=== PATIENT | male | born 2000 | race Asian ===

== ENCOUNTER 2023-10-02 14:11 | Emergency (ER) | payer OTHER ==
[~2023-10-02] VITALS: Ht 175.3 cm; Wt 69.1 kg
[2023-10-02] MEDS ORDERED: MAALOX 30 ML SUSP *UDC PO ONE (18:25)
[2023-10-02 18:55] LABS: BASO # 0.1 10^3/uL (0.0-0.2); BASO % 0.6 % (0.0-1.0); EOS # 0.1 10^3/uL (0.0-0.5); EOS % 1.4 % (0.0-3.0); HEMATOCRIT 46.3 % (42.0-52.0); HEMOGLOBIN 15.3 g/dl (13.5-17.5); LYMPH # 2.4 10^3/uL (1.5-5.0); LYMPH % 29.9 % (24.0-44.0); MEAN CORPUSCULAR HEMOGLOBIN 28.7 pg (27.0-33.0); MEAN CORPUSCULAR VOLUME 86.9 fl (80.0-96.0); MONO # 0.8 10^3/uL (0.0-0.8); MONO % 9.5 % (2.0-8.0); NEUTROPHILS # 4.7 10^3/uL (1.5-8.5); NEUTROPHILS % 58.4 % (36.0-66.0); PLATELET COUNT, AUTOMATED 316 10^3/uL (150-450); RED BLOOD COUNT 5.33 10^6/uL (4.30-6.10); WHITE BLOOD COUNT 8.1 10^3/uL (4.0-10.0)
[2023-10-02 19:14] LABS: BLOOD UREA NITROGEN 10 MG/DL (9-23); CALCIUM LEVEL 9.6 MG/DL (8.5-10.1); CARBON DIOXIDE LEVEL 27 MMOL/L (20-31); CHLORIDE LEVEL 105 MMOL/L (98-107); CK-MB VALUE MASS < 1.0 NG/ML (<3.6); CREATININE FOR GFR 0.82 MG/DL (0.70-1.30); GLOMERULAR FILTRATION RATE > 60.0 (>60); GLUCOSE, FASTING 86 MG/DL (60-100); POTASSIUM SERUM 4.1 MMOL/L (3.5-5.1); SODIUM LEVEL 140 MMOL/L (136-145)
[2023-10-02 19:15] LABS: CPK CREATINE PHOSPHOKINASE 61 U/L (46-171); MB/CK RELATIVE INDEX 1.63 (< OR =4)
[2023-10-02 19:26] VITALS: BP 146/80; TEMP 99; O2SAT 100
[2023-10-02] MEDS ORDERED: MAGNESIUM CITRATE 300ML BTL PO ONE (19:30)
[2023-10-02] MEDS ORDERED: PEPC1TAB5 PO (19:32)
[2023-10-02] MEDS ORDERED: MIRA3350 PO (19:32)
== END 2023-10-02 20:07 | disposition home or self-care (01) ==
LOC: M ED 14:11
DX: K21.9 Gastro-esophageal reflux disease without esophagitis (principal); K59.00 Constipation, unspecified; I45.81 Long QT syndrome; Z79.1 Long term (current) use of non-steroidal anti-inflammatories (NSAID); Z79.818 Long term (current) use of other agents affecting estrogen receptors and estrogen levels

== ENCOUNTER 2023-10-31 15:27 | Emergency (ER) | payer OTHER ==
[~2023-10-31] VITALS: Ht 175.3 cm; Wt 64.8 kg
[~2023-10-31 15:27] MED LIST: MIRA3350 PO; PEPC1TAB5 PO
[2023-10-31] MEDS ORDERED: OMEP-173 (16:01)
[2023-10-31] MEDS ORDERED: LOPE1CAP5 (16:01)
[2023-10-31 21:11] LABS: BASO % 0.5 % (0.0-1.0); EOS # 0.2 10^3/uL (0.0-0.5); EOS % 1.8 % (0.0-3.0); HEMATOCRIT 44.1 % (42.0-52.0); HEMOGLOBIN 15.1 g/dl (13.5-17.5); LYMPH # 3.3 10^3/uL (1.5-5.0); LYMPH % 40.4 % (24.0-44.0); MEAN CORPUSCULAR HEMOGLOBIN 28.8 pg (27.0-33.0); MEAN CORPUSCULAR HGB CONC 34.2 g/dl (32.0-36.5); MONO # 0.8 10^3/uL (0.0-0.8); MONO % 9.4 % (2.0-8.0); NEUTROPHILS # 3.9 10^3/uL (1.5-8.5); NEUTROPHILS % 47.8 % (36.0-66.0); PLATELET COUNT, AUTOMATED 261 10^3/uL (150-450); RED BLOOD COUNT 5.25 10^6/uL (4.30-6.10); WHITE BLOOD COUNT 8.2 10^3/uL (4.0-10.0)
[2023-10-31 21:37] LABS: ETHYL ALCOHOL (ETHANOL) 0.006 % (0.000-0.010)
[2023-10-31 21:39] LABS: RSV AMPLIFICATION NEGATIVE (NEGATIVE)
[2023-10-31 21:41] LABS: BLOOD UREA NITROGEN 11 MG/DL (9-23); CALCIUM LEVEL 9.5 MG/DL (8.5-10.1); CARBON DIOXIDE LEVEL 26 MMOL/L (20-31); CHLORIDE LEVEL 108 MMOL/L (98-107); CREATININE FOR GFR 0.83 MG/DL (0.70-1.30); GLOMERULAR FILTRATION RATE > 60.0 (>60); GLUCOSE, FASTING 85 MG/DL (60-100); MAGNESIUM LEVEL 1.9 MG/DL (1.8-2.4); POTASSIUM SERUM 3.9 MMOL/L (3.5-5.1); SODIUM LEVEL 140 MMOL/L (136-145); THYROID STIMULATING HORMONE 4.192 uIU/ML (0.55-4.78)
[2023-10-31] MEDS ORDERED: NS 1,000 ML IV ONE (22:10)
[2023-10-31 23:47] LABS: AMPHETAMINES LEVEL URINE NEGATIVE (NEGATIVE); BARBITURATES URINE NEGATIVE (NEGATIVE); BENZODIAZEPINES URINE NEGATIVE (NEGATIVE); CANNABINOIDS URINE NEGATIVE (NEGATIVE); PHENCYCLIDINE URINE NEGATIVE (NEGATIVE)
[2023-10-31 23:48] LABS: COCAINE METABOLITE URINE NEGATIVE (NEGATIVE); METHADONE URINE NEGATIVE (NEGATIVE); OPIATES URINE NEGATIVE (NEGATIVE)
[2023-11-01] VITALS: BP 120/74; TEMP 97.8; O2SAT 100
== END 2023-11-01 00:15 | disposition home or self-care (01) ==
LOC: M ED 15:27
DX: R55 Syncope and collapse (principal); F41.9 Anxiety disorder, unspecified; R00.0 Tachycardia, unspecified; I45.10 Unspecified right bundle-branch block; Z79.1 Long term (current) use of non-steroidal anti-inflammatories (NSAID); Z79.83 Long term (current) use of bisphosphonates; Z79.899 Other long term (current) drug therapy

== ENCOUNTER 2023-12-02 15:41 | Inpatient (IN) | payer OTHER ==
[~2023-12-02] VITALS: Ht 177.8 cm; Wt 58.9 kg
[~2023-12-02 15:41] MED LIST changes: +LOPE1CAP5 PO; +OMEP-173 PO
[2023-12-02 17:19] LABS: HEMOGLOBIN 14.6 g/dl (13.5-17.5); MEAN CORPUSCULAR HEMOGLOBIN 28.8 pg (27.0-33.0); MEAN CORPUSCULAR HGB CONC 35.6 g/dl (32.0-36.5); MEAN CORPUSCULAR VOLUME 80.9 fl (80.0-96.0); PLATELET COUNT, AUTOMATED 289 10^3/uL (150-450); RED BLOOD COUNT 5.07 10^6/uL (4.30-6.10); WHITE BLOOD COUNT 7.7 10^3/uL (4.0-10.0)
[2023-12-02 17:35] LABS: AMPHETAMINES LEVEL URINE NEGATIVE (NEGATIVE); BARBITURATES URINE NEGATIVE (NEGATIVE); CANNABINOIDS URINE NEGATIVE (NEGATIVE); COCAINE METABOLITE URINE NEGATIVE (NEGATIVE); METHADONE URINE NEGATIVE (NEGATIVE); OPIATES URINE NEGATIVE (NEGATIVE); PHENCYCLIDINE URINE NEGATIVE (NEGATIVE)
[2023-12-02 17:36] LABS: BENZODIAZEPINES URINE NEGATIVE (NEGATIVE)
[2023-12-02 17:37] LABS: ETHYL ALCOHOL (ETHANOL) < 0.003 % (0.000-0.010)
[2023-12-02 17:38] LABS: SALICYLATE LEVEL < 3.0 MG/DL (<30)
[2023-12-02 17:39] LABS: ALBUMIN 4.5 G/DL (3.2-5.2); ALKALINE PHOSPHATASE 84 U/L (46-116); ALT/SGPT 11 U/L (7.0-40); AST/SGOT 11 U/L (<34); BILIRUBIN,DIRECT 0.5 MG/DL (<0.4); BILIRUBIN,TOTAL 1.4 MG/DL (0.3-1.2); BLOOD UREA NITROGEN 11 MG/DL (9-23); CALCIUM LEVEL 9.8 MG/DL (8.5-10.1); CARBON DIOXIDE LEVEL 21 MMOL/L (20-31); CHLORIDE LEVEL 108 MMOL/L (98-107); CPK CREATINE PHOSPHOKINASE 98 U/L (46-171); CREATININE FOR GFR 0.87 MG/DL (0.70-1.30); GLOMERULAR FILTRATION RATE > 60.0 (>60); GLUCOSE, FASTING 78 MG/DL (60-100); POTASSIUM SERUM 3.4 MMOL/L (3.5-5.1); SODIUM LEVEL 139 MMOL/L (136-145); TOTAL PROTEIN 7.2 G/DL (5.7-8.2)
[2023-12-02 17:41] LABS: THYROID STIMULATING HORMONE 3.619 uIU/ML (0.55-4.78)
[2023-12-02] MEDS ORDERED: POLY17PO18 FT (19:06)
[2023-12-02] MEDS ORDERED: POLY510P14 PO (19:08)
[2023-12-02] MEDS: CYCLOBENZAPRINE 5MG TABLET PO ONE (19:09)
[2023-12-02] MEDS: POTASSIUM CHLORIDE 10MEQ SR TABLET PO ONE (19:09)
[2023-12-02] MEDS ORDERED: HYDR-3363 PO (19:22)
[2023-12-02] MEDS ORDERED: SUMA25TA3 PO (19:22)
[2023-12-02] MEDS ORDERED: LIDO1PAD TOP (19:22)
[2023-12-02] MEDS ORDERED: HOME MED LIST COMPLETE! XX SCH (19:25)
[2023-12-02] MEDS ORDERED: diphenhydrAMINE 25MG CAP PO PRN (22:25)
[2023-12-02] MEDS ORDERED: traZODone 50 MG TAB PO PRN (22:25)
[2023-12-02] MEDS ORDERED: MAALOX 30 ML SUSP *UDC PO PRN (22:25)
[2023-12-03 00:28] VITALS: BP 130/74; TEMP 97.6; O2SAT 100
[2023-12-03 06:32] VITALS: BP 117/63; TEMP 98.3; O2SAT 100
[2023-12-03] MEDS: ACETAMINOPHEN TAB 650MG DOSE (2X325MG) PO PRN (08:45)
[2023-12-03] MEDS: PERCOCET 5MG/325MG TAB PO PRN (12:57)
[2023-12-03 13:12] LABS: IRON (FE) 72 UG/DL (65-175); PERCENT SATURATION 20.7 % (19.7-50.0); RHEUMATOID FACTOR QUANT < 3.5 IU/ML (<14); TOTAL IRON BINDING CAPACITY 347 UG/DL (250-425)
[2023-12-03 13:16] LABS: BLOOD UREA NITROGEN 13 MG/DL (9-23); CALCIUM LEVEL 9.6 MG/DL (8.5-10.1); CARBON DIOXIDE LEVEL 23 MMOL/L (20-31); CHLORIDE LEVEL 107 MMOL/L (98-107); CREATININE FOR GFR 0.85 MG/DL (0.70-1.30); GLOMERULAR FILTRATION RATE > 60.0 (>60); GLUCOSE, FASTING 85 MG/DL (60-100); POTASSIUM SERUM 4.1 MMOL/L (3.5-5.1); SODIUM LEVEL 137 MMOL/L (136-145); TOTAL 25(OH) VITAMIN D 22.8 NG/ML (20.0-100.0)
[2023-12-03] MEDS: OMEPRAZOLE 20MG CAP PO SCH (14:29)
[2023-12-03] MEDS: SERTRALINE HCL 50 MG TAB PO SCH (14:36)
[2023-12-03 16:19] VITALS: BP 117/73; TEMP 97.5; O2SAT 98
[2023-12-03 18:00] VITALS: BP 127/83; TEMP 98.3; O2SAT 100
[2023-12-03] MEDS: IBUPROFEN 400MG TAB PO PRN (18:01)
[2023-12-03] MEDS ORDERED: diphenhydrAMINE 50MG/ML VIAL IM STA (18:09)
[2023-12-03] MEDS ORDERED: PROCHLORPERAZINE 5MG TAB PO PRN (18:10)
[2023-12-03] MEDS: FIORICET TAB PO PRN (18:27)
[2023-12-04 06:51] VITALS: BP 126/77; TEMP 97.4; O2SAT 100
[2023-12-04 09:00] VITALS: BP 131/82; O2SAT 100
[2023-12-04] MEDS: MOM 30ML SUSPENSION UDC PO PRN (15:01)
[2023-12-04 16:08] VITALS: BP 117/79; TEMP 98.6; O2SAT 99
[2023-12-04] MEDS: MIRALAX *UNIT DOSE* 17GM PACKET PO PRN (18:13)
[2023-12-05 06:51] VITALS: BP 95/55; TEMP 98.3; O2SAT 100
[2023-12-05] MEDS: SENNA 8.6 MG TAB (SENOKOT) PO PRN (10:44)
[2023-12-05] MEDS ORDERED: SERT50TA29 PO (13:03)
[2023-12-05 18:43] VITALS: BP 131/84; TEMP 98.2; O2SAT 98
[2023-12-05] MEDS: SUMAtriptan SUCCINATE 25 MG TAB PO PRN (21:28)
[2023-12-06 06:26] VITALS: BP 109/67; TEMP 99.1; O2SAT 96
== END 2023-12-06 11:51 | disposition home or self-care (01) | DRG 885 ==
LOC: M ED 15:41 → M ED INP 22:21 → M PSY 23:34
PROVIDERS: ADMIT Psychiatry & Neurology Psychiatry; ATTEND Student in an Organized Health Care Education/Training Program
DX: F32.2 Major depressive disorder, single episode, severe without psychotic features (principal); R45.851 Suicidal ideations; Z68.1 Body mass index [BMI] 19.9 or less, adult; E46 Unspecified protein-calorie malnutrition; Z79.899 Other long term (current) drug therapy; K21.9 Gastro-esophageal reflux disease without esophagitis; G43.909 Migraine, unspecified, not intractable, without status migrainosus; R52 Pain, unspecified; E87.6 Hypokalemia; E80.6 Other disorders of bilirubin metabolism

== ENCOUNTER → 2023-12-22 | Outpatient (CLI) | payer OTHER ==
[~2023-12-22] MED LIST changes: +HYDR-3363 PO; +ISOVUE-370 76% 100ML VIAL ONE; +LIDO1PAD TOP; +POLY17PO18 FT; +POLY510P14 PO; +SERT50TA29 PO; +SUMA25TA3 PO
== END ==
LOC: M PLAIMG 10:46
PROVIDERS: ATTEND Physician Assistant
DX: G89.29 Other chronic pain (principal)
CPT/HCPCS: 71260; Q9967

== ENCOUNTER 2023-12-29 11:26 | Inpatient (IN) | payer OTHER ==
[~2023-12-29] VITALS: Ht 175.3 cm; Wt 57.4 kg
[~2023-12-29 11:26] MED LIST changes: -ISOVUE-370 76% 100ML VIAL ONE
[2023-12-29 12:00] LABS: BASO % 0.5 % (0.0-1.0); EOS # 0.1 10^3/uL (0.0-0.5); EOS % 1.1 % (0.0-3.0); HEMATOCRIT 46.6 % (42.0-52.0); HEMOGLOBIN 16.1 g/dl (13.5-17.5); LYMPH # 1.8 10^3/uL (1.5-5.0); LYMPH % 32.2 % (24.0-44.0); MEAN CORPUSCULAR HEMOGLOBIN 28.8 pg (27.0-33.0); MEAN CORPUSCULAR HGB CONC 34.5 g/dl (32.0-36.5); MEAN CORPUSCULAR VOLUME 83.4 fl (80.0-96.0); MONO # 0.6 10^3/uL (0.0-0.8); NEUTROPHILS # 3.2 10^3/uL (1.5-8.5); PLATELET COUNT, AUTOMATED 291 10^3/uL (150-450); RED BLOOD COUNT 5.59 10^6/uL (4.30-6.10); WHITE BLOOD COUNT 5.6 10^3/uL (4.0-10.0)
[2023-12-29 12:32] LABS: ETHYL ALCOHOL (ETHANOL) < 0.003 % (0.000-0.010)
[2023-12-29 12:34] LABS: ALBUMIN 5.3 G/DL (3.2-5.2); ALKALINE PHOSPHATASE 102 U/L (46-116); ALT/SGPT 15 U/L (7.0-40); AST/SGOT 12 U/L (<34); BILIRUBIN,DIRECT 0.6 MG/DL (<0.4); BILIRUBIN,TOTAL 1.6 MG/DL (0.3-1.2); BLOOD UREA NITROGEN 17 MG/DL (9-23); CALCIUM LEVEL 10.4 MG/DL (8.5-10.1); CARBON DIOXIDE LEVEL 22 MMOL/L (20-31); CHLORIDE LEVEL 105 MMOL/L (98-107); CREATININE FOR GFR 0.88 MG/DL (0.70-1.30); GLOMERULAR FILTRATION RATE > 60.0 (>60); GLUCOSE, FASTING 92 MG/DL (60-100); POTASSIUM SERUM 3.5 MMOL/L (3.5-5.1); SALICYLATE LEVEL < 3.0 MG/DL (<30); SODIUM LEVEL 140 MMOL/L (136-145); TOTAL PROTEIN 8.3 G/DL (5.7-8.2)
[2023-12-29 12:36] LABS: THYROID STIMULATING HORMONE 1.733 uIU/ML (0.55-4.78)
[2023-12-29 12:39] LABS: CPK CREATINE PHOSPHOKINASE 97 U/L (46-171)
[2023-12-29] MEDS ORDERED: CALCTAB93 (13:49)
[2023-12-29] MEDS ORDERED: SERT50TA29 PO (14:06)
[2023-12-29] MEDS ORDERED: HOME MED LIST COMPLETE! XX SCH (14:10)
[2023-12-29 14:13] LABS: AMPHETAMINES LEVEL URINE NEGATIVE (NEGATIVE); BARBITURATES URINE NEGATIVE (NEGATIVE); BENZODIAZEPINES URINE NEGATIVE (NEGATIVE); CANNABINOIDS URINE NEGATIVE (NEGATIVE); COCAINE METABOLITE URINE NEGATIVE (NEGATIVE); METHADONE URINE NEGATIVE (NEGATIVE); OPIATES URINE NEGATIVE (NEGATIVE); PHENCYCLIDINE URINE NEGATIVE (NEGATIVE)
[2023-12-29] MEDS ORDERED: LIDOCAINE 5% (LIDODERM) PATCH TOP PRN (18:25)
[2023-12-29] MEDS ORDERED: NICOTINE 21MG/24HR 1 EA TRANSDERMAL TD PRN (18:25)
[2023-12-29] MEDS ORDERED: diphenhydrAMINE 25MG CAP PO PRN (18:25)
[2023-12-29] MEDS ORDERED: MAALOX 30 ML SUSP *UDC PO PRN (18:25)
[2023-12-29 21:39] VITALS: BP 107/59; TEMP 98.4; O2SAT 97
[2023-12-30] MEDS: traZODone 50 MG TAB PO PRN (01:17)
[2023-12-30 06:02] VITALS: BP 108/63; TEMP 97.7; O2SAT 99
[2023-12-30] MEDS: OMEPRAZOLE 20MG CAP PO SCH (09:12)
[2023-12-30] MEDS: SERTRALINE HCL 50 MG TAB PO SCH (09:12)
[2023-12-30] MEDS: IBUPROFEN 400MG TAB PO PRN (09:24)
[2023-12-30] MEDS: SUMAtriptan SUCCINATE 25 MG TAB PO PRN (10:21)
[2023-12-30] MEDS: tiZANidine 4 MG TAB PO ONE (10:33)
[2023-12-30] MEDS: CAPSAICIN 0.025% CR 60 GM TOP PRN (12:02)
[2023-12-30 16:27] VITALS: BP 124/63; TEMP 97.9; O2SAT 100
[2023-12-30] MEDS: DULoxetine 30MG CAPSULE (CYMBALTA) PO SCH (20:55)
[2023-12-30] MEDS: ACETAMINOPHEN TAB 650MG DOSE (2X325MG) PO PRN (21:01)
[2023-12-31 06:33] VITALS: BP 111/56; TEMP 97.2; O2SAT 100
[2023-12-31] MEDS: tiZANidine 4 MG TAB PO PRN (15:10)
[2023-12-31 16:01] VITALS: BP 137/79; TEMP 97.5; O2SAT 96
[2024-01-01 06:27] VITALS: BP 101/68; TEMP 97.4; O2SAT 99
[2024-01-01] MEDS: MIRALAX *UNIT DOSE* 17GM PACKET PO SCH (12:42)
[2024-01-01] MEDS: MOM 30ML SUSPENSION UDC PO PRN (14:19)
[2024-01-01 16:19] VITALS: BP 106/65; TEMP 98.1; O2SAT 100
[2024-01-01] MEDS: PILL CUTTER 1 EACH XX PRN (17:40)
[2024-01-02 05:54] VITALS: TEMP 97.6; O2SAT 100
[2024-01-02 12:50] VITALS: BP 130/72; TEMP 97.6; O2SAT 100
[2024-01-02 14:15] VITALS: BP_SYST 129; BP_SYST 137; BP_DIAS 78; BP_DIAS 86
[2024-01-02 18:10] VITALS: BP 127/70; TEMP 97.8
[2024-01-02] MEDS: traZODone 25MG PER 1/2 TABLET PO PRN (21:50)
[2024-01-03 01:15] VITALS: BP 116/71; TEMP 98; O2SAT 100
[2024-01-03 06:08] VITALS: BP 104/57; TEMP 98.3; O2SAT 99
[2024-01-03] MEDS ORDERED: CYMB1CAP5 PO (08:50)
[2024-01-03] MEDS ORDERED: CAPS25CR TOP (08:50)
[2024-01-03] MEDS ORDERED: MIRA33506 PO (08:50)
[2024-01-03] MEDS ORDERED: TRAZ-252 PO (08:50)
[2024-01-03] MEDS ORDERED: NICO21PAT TD (08:50)
[2024-01-03] MEDS ORDERED: QC F0.52 PO (08:51)
== END 2024-01-03 12:00 | disposition home or self-care (01) | DRG 885 ==
LOC: M ED 11:26 → M ED INP 18:25 → M PSY 20:51
PROVIDERS: ADMIT Student in an Organized Health Care Education/Training Program; ATTEND Student in an Organized Health Care Education/Training Program
DX: F33.1 Major depressive disorder, recurrent, moderate (principal); F45.0 Somatization disorder; R52 Pain, unspecified; K21.9 Gastro-esophageal reflux disease without esophagitis; G43.909 Migraine, unspecified, not intractable, without status migrainosus; Z79.899 Other long term (current) drug therapy

== ENCOUNTER 2024-01-10 12:52 | Inpatient (IN) | payer OTHER ==
[~2024-01-10] VITALS: Ht 175.3 cm; Wt 58.7 kg
[~2024-01-10 12:52] MED LIST changes: +CALCTAB93; +CAPS25CR TOP; +CYMB1CAP5 PO; +MIRA33506 PO; +NICO21PAT TD; +QC F0.52 PO; +TRAZ-252 PO
[2024-01-10] MEDS ORDERED: IBUP-1022 PO (13:10)
[2024-01-10] MEDS ORDERED: IBUP-1114 PO (13:10)
[2024-01-10] MEDS ORDERED: MIRA3350 PO (13:10)
[2024-01-10 13:57] LABS: HEMATOCRIT 42.1 % (42.0-52.0); HEMOGLOBIN 14.3 g/dl (13.5-17.5); MEAN CORPUSCULAR HEMOGLOBIN 28.8 pg (27.0-33.0); MEAN CORPUSCULAR VOLUME 84.7 fl (80.0-96.0); PLATELET COUNT, AUTOMATED 300 10^3/uL (150-450); RED BLOOD COUNT 4.97 10^6/uL (4.30-6.10); WHITE BLOOD COUNT 7.8 10^3/uL (4.0-10.0)
[2024-01-10 14:19] LABS: ETHYL ALCOHOL (ETHANOL) < 0.003 % (0.000-0.010)
[2024-01-10 14:20] LABS: ALBUMIN 4.9 G/DL (3.2-5.2); ALKALINE PHOSPHATASE 90 U/L (46-116); ALT/SGPT 18 U/L (7.0-40); AST/SGOT 14 U/L (<34); BILIRUBIN,DIRECT 0.5 MG/DL (<0.4); BILIRUBIN,TOTAL 1.2 MG/DL (0.3-1.2); BLOOD UREA NITROGEN 16 MG/DL (9-23); CALCIUM LEVEL 10.3 MG/DL (8.5-10.1); CARBON DIOXIDE LEVEL 24 MMOL/L (20-31); CHLORIDE LEVEL 103 MMOL/L (98-107); CREATININE FOR GFR 0.88 MG/DL (0.70-1.30); GLOMERULAR FILTRATION RATE > 60.0 (>60); GLUCOSE, FASTING 83 MG/DL (60-100); POTASSIUM SERUM 3.6 MMOL/L (3.5-5.1); SALICYLATE LEVEL < 3.0 MG/DL (<30); SODIUM LEVEL 140 MMOL/L (136-145); TOTAL PROTEIN 7.4 G/DL (5.7-8.2)
[2024-01-10 14:23] LABS: THYROID STIMULATING HORMONE 0.575 uIU/ML (0.55-4.78)
[2024-01-10 15:46] LABS: AMPHETAMINES LEVEL URINE NEGATIVE (NEGATIVE); BARBITURATES URINE NEGATIVE (NEGATIVE); BENZODIAZEPINES URINE NEGATIVE (NEGATIVE); COCAINE METABOLITE URINE NEGATIVE (NEGATIVE); METHADONE URINE NEGATIVE (NEGATIVE); OPIATES URINE NEGATIVE (NEGATIVE)
[2024-01-10 15:47] LABS: CANNABINOIDS URINE NEGATIVE (NEGATIVE); PHENCYCLIDINE URINE NEGATIVE (NEGATIVE)
[2024-01-10] MEDS ORDERED: DULO1CAP5 PO (20:04)
[2024-01-10] MEDS ORDERED: HYDR50TA70 PO (20:04)
[2024-01-10] MEDS ORDERED: RIZA5TAB52 PO (20:04)
[2024-01-10] MEDS ORDERED: POLY17PO18 PO (20:04)
[2024-01-10] MEDS ORDERED: QC F0.52 PO (20:04)
[2024-01-10] MEDS ORDERED: NICO21DI37 TD (20:04)
[2024-01-10] MEDS ORDERED: CAPS0.022 TOP (20:04)
[2024-01-10] MEDS ORDERED: TRAZ-252 PO (20:05)
[2024-01-10] MEDS ORDERED: HOME MED LIST COMPLETE! XX SCH (20:15)
[2024-01-11] MEDS: IBUPROFEN 400MG TAB PO PRN ×2 (10:00→18:52)
[2024-01-11] MEDS: OMEPRAZOLE 20MG CAP PO SCH (10:00)
[2024-01-11] MEDS: MIRALAX *UNIT DOSE* 17GM PACKET PO PRN (12:28)
[2024-01-11] MEDS ORDERED: diphenhydrAMINE 25MG CAP PO PRN (17:20)
[2024-01-11] MEDS ORDERED: MAALOX 30 ML SUSP *UDC PO PRN (17:20)
[2024-01-11] MEDS: RIZATRIPTAN BENZOATE 10 MG TAB PO PRN (19:13)
[2024-01-11] MEDS: traZODone 50 MG TAB PO PRN (20:42)
[2024-01-11 21:45] VITALS: BP 118/79
[2024-01-12 06:39] VITALS: BP 104/57; TEMP 97.5; O2SAT 100
[2024-01-12] MEDS ORDERED: MIRALAX *UNIT DOSE* 17GM PACKET PO SCH (09:00)
[2024-01-12] MEDS: hydrOXYzine 50 MG TAB PO PRN (12:49)
[2024-01-12] MEDS: ACETAMINOPHEN TAB 650MG DOSE (2X325MG) PO PRN (12:49)
[2024-01-12] MEDS: MOM 30ML SUSPENSION UDC PO PRN (12:51)
[2024-01-12 15:59] VITALS: BP 96/50; TEMP 98.2; O2SAT 98
[2024-01-12] MEDS: MIRTAZAPINE 7.5MG PER 1/2 TABLET PO SCH (21:44)
[2024-01-12] MEDS: OLANZapine 2.5MG TABLET PO SCH (21:44)
[2024-01-13 05:41] VITALS: BP 104/70; TEMP 97.6; O2SAT 99
[2024-01-13 08:32] LABS: CHOLESTEROL RISK RATIO 3.22 (<5); HDL CHOLESTEROL 33.5 MG/DL (>40); LDL CHOLESTEROL 58.9 MG/DL (<100); NON-HDL-C 74.5 MG/DL
[2024-01-13] MEDS ORDERED: LIDOCAINE 5% (LIDODERM) PATCH TOP PRN (09:15)
[2024-01-13] MEDS ORDERED: NICOTINE 21MG/24HR 1 EA TRANSDERMAL TD PRN (09:15)
[2024-01-13] MEDS ORDERED: METAMUCIL (PSYLLIUM) PACKET PO PRN (09:15)
[2024-01-13] MEDS: DULoxetine 30MG CAPSULE (CYMBALTA) PO SCH (21:51)
[2024-01-14 06:41] VITALS: BP 102/55; TEMP 97.2; O2SAT 100
[2024-01-14 16:15] VITALS: BP 106/58; TEMP 97.8; O2SAT 100
[2024-01-15] MEDS: DULoxetine 30MG CAPSULE (CYMBALTA) PO SCH (09:15)
[2024-01-15] MEDS: OLANZapine ORAL DISINTEGRATING TAB 5MG PO STA (09:50)
[2024-01-15] MEDS: HALOPERIDOL 5MG/ML 1ML VIAL IM STA (10:15)
[2024-01-15] MEDS: diphenhydrAMINE 50MG/ML VIAL IM STA (10:16)
[2024-01-15] MEDS: LORazepam 2 MG/ML 1ML VIAL IM STA (10:16)
[2024-01-15 10:45] VITALS: BP 103/56; TEMP 98.6; O2SAT 92
[2024-01-15 16:20] VITALS: BP 114/62; TEMP 97.6; O2SAT 99
[2024-01-16 06:20] VITALS: BP 110/61; TEMP 97.7; O2SAT 100
[2024-01-16] MEDS: DULoxetine 30MG CAPSULE (CYMBALTA) PO SCH (09:39)
[2024-01-16 17:26] VITALS: BP 130/82; TEMP 97.7; O2SAT 100
[2024-01-17 06:15] VITALS: BP 119/71; TEMP 98; O2SAT 98
[2024-01-17] MEDS: CAPSAICIN 0.025% CR 60 GM TOP PRN (13:00)
[2024-01-17 17:31] VITALS: BP 115/61; TEMP 98.2; O2SAT 100
[2024-01-17] MEDS: OLANZapine 5 MG TAB PO SCH (21:43)
[2024-01-18 06:16] VITALS: BP 117/57; TEMP 98; O2SAT 100
[2024-01-18] MEDS ORDERED: OLAN1TAB16 PO (09:13)
[2024-01-18] MEDS ORDERED: MIRT1TAB15 PO (09:13)
[2024-01-18] MEDS ORDERED: CYMB1CAP5 PO (09:13)
== END 2024-01-18 12:06 | disposition home or self-care (01) | DRG 885 ==
LOC: M ED 13:44 → M ED INP 01-11 17:20 → M PSY 01-11 21:38
PROVIDERS: ADMIT Psychiatry & Neurology Psychiatry; ATTEND Student in an Organized Health Care Education/Training Program
DX: F32.3 Major depressive disorder, single episode, severe with psychotic features (principal); R45.851 Suicidal ideations; E46 Unspecified protein-calorie malnutrition; F45.1 Undifferentiated somatoform disorder; R45.850 Homicidal ideations; Z79.899 Other long term (current) drug therapy; K21.9 Gastro-esophageal reflux disease without esophagitis; G43.909 Migraine, unspecified, not intractable, without status migrainosus; M79.18 Myalgia, other site; M54.59 Other low back pain

== ENCOUNTER 2024-01-31 12:24 | Emergency (ER) | payer OTHER ==
[~2024-01-31] VITALS: Ht 175.3 cm; Wt 64.5 kg
[~2024-01-31 12:24] MED LIST changes: +CAPS0.022 TOP; +DULO1CAP5 PO; +HYDR50TA70 PO; +IBUP-1022 PO; +IBUP-1114 PO; +MIRT1TAB15 PO; +NICO21DI37 TD; +OLAN1TAB16 PO; +POLY17PO18 PO; +RIZA5TAB52 PO
[2024-01-31 13:36] LABS: BASO % 0.4 % (0.0-1.0); EOS % 0.3 % (0.0-3.0); HEMATOCRIT 46.1 % (42.0-52.0); HEMOGLOBIN 15.5 g/dl (13.5-17.5); LYMPH # 1.7 10^3/uL (1.5-5.0); LYMPH % 15.6 % (24.0-44.0); MEAN CORPUSCULAR HEMOGLOBIN 29.1 pg (27.0-33.0); MEAN CORPUSCULAR HGB CONC 33.6 g/dl (32.0-36.5); MEAN CORPUSCULAR VOLUME 86.7 fl (80.0-96.0); MONO # 0.7 10^3/uL (0.0-0.8); MONO % 6.8 % (2.0-8.0); NEUTROPHILS # 8.3 10^3/uL (1.5-8.5); NEUTROPHILS % 76.4 % (36.0-66.0); PLATELET COUNT, AUTOMATED 318 10^3/uL (150-450); RED BLOOD COUNT 5.32 10^6/uL (4.30-6.10); WHITE BLOOD COUNT 10.8 10^3/uL (4.0-10.0)
[2024-01-31 14:11] LABS: ETHYL ALCOHOL (ETHANOL) < 0.003 % (0.000-0.010)
[2024-01-31 14:12] LABS: ALBUMIN 5.4 G/DL (3.2-5.2); ALKALINE PHOSPHATASE 77 U/L (46-116); ALT/SGPT 25 U/L (7.0-40); AST/SGOT 23 U/L (<34); BILIRUBIN,DIRECT 0.3 MG/DL (<0.4); BILIRUBIN,TOTAL 1.1 MG/DL (0.3-1.2); BLOOD UREA NITROGEN 16 MG/DL (9-23); CALCIUM LEVEL 10.8 MG/DL (8.5-10.1); CARBON DIOXIDE LEVEL 23 MMOL/L (20-31); CHLORIDE LEVEL 100 MMOL/L (98-107); CREATININE FOR GFR 0.79 MG/DL (0.70-1.30); GLOMERULAR FILTRATION RATE > 60.0 (>60); GLUCOSE, FASTING 68 MG/DL (60-100); MAGNESIUM LEVEL 2.2 MG/DL (1.8-2.4); POTASSIUM SERUM 3.9 MMOL/L (3.5-5.1); SALICYLATE LEVEL < 3.0 MG/DL (<30); SODIUM LEVEL 138 MMOL/L (136-145); TOTAL PROTEIN 8.5 G/DL (5.7-8.2)
[2024-01-31 14:14] LABS: FREE T4 1.25 NG/DL (0.89-1.76); THYROID STIMULATING HORMONE 1.108 uIU/ML (0.55-4.78)
[2024-01-31 14:16] LABS: CPK CREATINE PHOSPHOKINASE 104 U/L (46-171)
[2024-01-31 14:32] LABS: AMPHETAMINES LEVEL URINE NEGATIVE (NEGATIVE); BARBITURATES URINE NEGATIVE (NEGATIVE); BENZODIAZEPINES URINE NEGATIVE (NEGATIVE); CANNABINOIDS URINE NEGATIVE (NEGATIVE); COCAINE METABOLITE URINE NEGATIVE (NEGATIVE); METHADONE URINE NEGATIVE (NEGATIVE); OPIATES URINE NEGATIVE (NEGATIVE); PHENCYCLIDINE URINE NEGATIVE (NEGATIVE)
[2024-01-31 16:41] VITALS: BP 114/72; TEMP 97.8; O2SAT 100
== END 2024-01-31 16:42 | disposition home or self-care (01) ==
LOC: M ED 12:24 → EDBD 12:24 → M ED 16:42
DX: R53.1 Weakness (principal); F41.9 Anxiety disorder, unspecified; F32.9 Major depressive disorder, single episode, unspecified; K21.9 Gastro-esophageal reflux disease without esophagitis; Z79.899 Other long term (current) drug therapy

== ENCOUNTER 2024-02-04 12:52 | Inpatient (IN) | payer OTHER ==
[~2024-02-04] VITALS: Ht 175.3 cm; Wt 41.9 kg
[2024-02-04 13:48] LABS: HEMATOCRIT 40.7 % (42.0-52.0); HEMOGLOBIN 14.3 g/dl (13.5-17.5); MEAN CORPUSCULAR HEMOGLOBIN 29.5 pg (27.0-33.0); MEAN CORPUSCULAR HGB CONC 35.1 g/dl (32.0-36.5); MEAN CORPUSCULAR VOLUME 83.9 fl (80.0-96.0); PLATELET COUNT, AUTOMATED 314 10^3/uL (150-450); RED BLOOD COUNT 4.85 10^6/uL (4.30-6.10); WHITE BLOOD COUNT 8.2 10^3/uL (4.0-10.0)
[2024-02-04 14:21] LABS: ETHYL ALCOHOL (ETHANOL) 0.003 % (0.000-0.010)
[2024-02-04 14:22] LABS: SALICYLATE LEVEL < 3.0 MG/DL (<30)
[2024-02-04 14:23] LABS: ALBUMIN 4.3 G/DL (3.2-5.2); ALKALINE PHOSPHATASE 76 U/L (46-116); ALT/SGPT 17 U/L (7.0-40); AST/SGOT 16 U/L (<34); BILIRUBIN,DIRECT 0.4 MG/DL (<0.4); BILIRUBIN,TOTAL 1.3 MG/DL (0.3-1.2); BLOOD UREA NITROGEN 16 MG/DL (9-23); CARBON DIOXIDE LEVEL 19 MMOL/L (20-31); CHLORIDE LEVEL 108 MMOL/L (98-107); CREATININE FOR GFR 0.92 MG/DL (0.70-1.30); GLOMERULAR FILTRATION RATE > 60.0 (>60); GLUCOSE, FASTING 86 MG/DL (60-100); POTASSIUM SERUM 3.5 MMOL/L (3.5-5.1); SODIUM LEVEL 141 MMOL/L (136-145); TOTAL PROTEIN 7.5 G/DL (5.7-8.2)
[2024-02-04 14:25] LABS: THYROID STIMULATING HORMONE 0.854 uIU/ML (0.55-4.78)
[2024-02-04 14:34] LABS: AMPHETAMINES LEVEL URINE NEGATIVE (NEGATIVE); BARBITURATES URINE NEGATIVE (NEGATIVE); BENZODIAZEPINES URINE NEGATIVE (NEGATIVE); CANNABINOIDS URINE NEGATIVE (NEGATIVE); COCAINE METABOLITE URINE NEGATIVE (NEGATIVE); METHADONE URINE NEGATIVE (NEGATIVE); OPIATES URINE NEGATIVE (NEGATIVE); PHENCYCLIDINE URINE NEGATIVE (NEGATIVE)
[2024-02-04] MEDS ORDERED: MIRT-88 PO (14:49)
[2024-02-04] MEDS ORDERED: CYMB1CAP5 PO (14:49)
[2024-02-04] MEDS ORDERED: OLAN1TAB16 PO (14:50)
[2024-02-04] MEDS ORDERED: HOME MED LIST COMPLETE! XX SCH (14:55)
[2024-02-04] MEDS ORDERED: MAALOX 30 ML SUSP *UDC PO PRN (15:25)
[2024-02-04] MEDS ORDERED: MOM 30ML SUSPENSION UDC PO PRN (15:25)
[2024-02-04 18:25] VITALS: BP 120/72; TEMP 98.7; O2SAT 99
[2024-02-04] MEDS: IBUPROFEN 400MG TAB PO PRN (19:02)
[2024-02-05 06:30] VITALS: BP 104/56; TEMP 98.5; O2SAT 100
[2024-02-05] MEDS: ACETAMINOPHEN TAB 650MG DOSE (2X325MG) PO PRN (08:41)
[2024-02-05] MEDS ORDERED: NICOTINE 21MG/24HR 1 EA TRANSDERMAL TD PRN (11:40)
[2024-02-05] MEDS ORDERED: MIRALAX *UNIT DOSE* 17GM PACKET PO PRN (11:40)
[2024-02-05] MEDS ORDERED: CAPSAICIN 0.025% CR 60 GM TOP PRN (11:40)
[2024-02-05] MEDS ORDERED: LIDOCAINE 5% (LIDODERM) PATCH TOP PRN (12:30)
[2024-02-05 12:52] LABS: MAGNESIUM LEVEL 1.8 MG/DL (1.8-2.4); PHOSPHORUS LEVEL 1.9 MG/DL (2.5-4.9)
[2024-02-05 15:28] VITALS: BP_SYST 128; BP_SYST 129; BP_DIAS 72; BP_DIAS 80; TEMP 97.7; TEMP 98.3; O2SAT 100; O2SAT 98
[2024-02-05] MEDS: K-PHOS NEUTRAL 250MG TABLET (SOD.PHOSPHATE/POT.PHOSPHATE) PO SCH (16:53)
[2024-02-05] MEDS: traZODone 50 MG TAB PO PRN (21:38)
[2024-02-06 06:45] VITALS: BP 102/55; TEMP 98.3; O2SAT 99
[2024-02-06] MEDS: OMEPRAZOLE 20MG CAP PO SCH (10:19)
[2024-02-06 18:00] VITALS: BP 118/87; TEMP 97.3; O2SAT 100
[2024-02-06] MEDS: diphenhydrAMINE 25MG CAP PO PRN (20:10)
[2024-02-07 06:21] VITALS: BP 97/55; TEMP 98.5; O2SAT 100
[2024-02-07] MEDS ORDERED: hydrOXYzine 50 MG TAB PO PRN (11:45)
[2024-02-07] MEDS ORDERED: RIZATRIPTAN MLT 10 MG TAB PO PRN (11:45)
[2024-02-07] MEDS: DULoxetine 30MG CAPSULE (CYMBALTA) PO SCH (12:54)
[2024-02-07] MEDS: CAPSAICIN 0.025% CR 60 GM TOP PRN (12:57)
[2024-02-07 18:41] VITALS: BP 141/90; TEMP 98.5
[2024-02-07] MEDS: MIRTAZAPINE 15 MG TAB PO SCH (21:39)
[2024-02-07] MEDS: traZODone 50 MG TAB PO SCH (21:39)
[2024-02-07] MEDS: PILL CUTTER 1 EACH XX PRN (21:39)
[2024-02-07] MEDS: OLANZapine 5 MG TAB PO SCH (21:39)
[2024-02-08 06:30] VITALS: BP 101/51; TEMP 97.5; O2SAT 100
[2024-02-08 18:16] VITALS: BP 119/73; TEMP 97.7
[2024-02-09 06:35] VITALS: BP 98/60; TEMP 98.1; O2SAT 99
[2024-02-09] MEDS: LORazepam 2 MG TAB PO STA (08:33)
[2024-02-09 11:56] VITALS: BP 98/60; TEMP 98.1; O2SAT 99
[2024-02-09 18:20] VITALS: BP 144/83; TEMP 99.3
[2024-02-10 06:38] VITALS: BP 110/68; TEMP 98.3; O2SAT 100
[2024-02-10 08:38] VITALS: O2SAT 99
== END 2024-02-10 08:29 | disposition home or self-care (01) | DRG 885 ==
LOC: M ED 12:52 → M ED INP 15:23 → M PSY 18:31
PROVIDERS: ADMIT Psychiatry & Neurology Psychiatry; ATTEND Student in an Organized Health Care Education/Training Program
DX: F32.3 Major depressive disorder, single episode, severe with psychotic features (principal); R45.851 Suicidal ideations; E46 Unspecified protein-calorie malnutrition; F45.1 Undifferentiated somatoform disorder; K21.9 Gastro-esophageal reflux disease without esophagitis; G40.909 Epilepsy, unspecified, not intractable, without status epilepticus; M25.541 Pain in joints of right hand; Z79.899 Other long term (current) drug therapy; W22.09XA Striking against other stationary object, initial encounter; Y92.9 Unspecified place or not applicable; Y93.9 Activity, unspecified

== ENCOUNTER → 2024-08-21 | Outpatient (REF) | payer OTHER ==
[~2024-08-21] MED LIST changes: +MIRT-88 PO
[2024-08-21 13:25] LABS: APPEARANCE, URINE CLEAR (CLEAR); BACTERIA, URINE AUTO NEGATIVE (NEGATIVE); BILIRUBIN, URINE AUTO NEGATIVE (NEGATIVE); BLOOD, URINE BLOOD NEGATIVE (NEGATIVE); COLOR, URINE YELLOW (YELLOW); GLUCOSE, URINE (UA) AUTO NEGATIVE (NEGATIVE); KETONE, URINE AUTO NEGATIVE (NEGATIVE); LEUKOCYTE ESTERASE, URINE AUTO NEGATIVE (NEGATIVE); MUCUS, URINE SMALL (NEGATIVE); NITRITE, URINE AUTO NEGATIVE (NEGATIVE); PROTEIN, URINE AUTO NEGATIVE (NEGATIVE); RBC, URINE AUTO 1 /HPF (0-3); SPECIFIC GRAVITY URINE AUTO 1.014 (1.002-1.035); SQUAMOUS EPITHELIAL CELL UR AU 0 /HPF (0-6); UROBILINOGEN, URINE AUTO 0.2 mg/dL (0.0-2.0); WBC, URINE AUTO 1 /HPF (0-3)
[2024-08-21 14:11] LABS: TOTAL PROTEIN,RANDOM URINE 7.9 MG/DL (0.0-14.0)
[2024-08-21 14:16] LABS: CREATININE,RANDOM URINE 102.4 MG/DL
[2024-08-21 14:19] LABS: C REACTIVE PROTEIN QUANTITATIV < 0.40 MG/DL (<1.0)
[2024-08-21 14:20] LABS: CPK CREATINE PHOSPHOKINASE 77 U/L (46-171); LDH LACTATE DEHYDROGENASE 124 U/L (120-246)
[2024-08-21 14:21] LABS: ALBUMIN 4.3 G/DL (3.2-5.2); ALKALINE PHOSPHATASE 68 U/L (40-129); ALT/SGPT 15 U/L (7.0-40); AST/SGOT < 8 U/L (<34); BILIRUBIN,TOTAL 0.6 MG/DL (0.3-1.2); BLOOD UREA NITROGEN 11 MG/DL (9-23); CALCIUM LEVEL 9.7 MG/DL (8.5-10.1); CARBON DIOXIDE LEVEL 26 MMOL/L (20-31); CHLORIDE LEVEL 107 MMOL/L (98-107); CREATININE FOR GFR 0.73 MG/DL (0.70-1.30); GLOMERULAR FILTRATION RATE > 60.0 (>60); GLUCOSE, FASTING 114 MG/DL (60-100); POTASSIUM SERUM 4.2 MMOL/L (3.5-5.1); SODIUM LEVEL 142 MMOL/L (136-145); TOTAL PROTEIN 7.3 G/DL (5.7-8.2)
[2024-08-21 14:23] LABS: COMPLEMENT C3 123.1 MG/DL (82.0-160.0)
[2024-08-21 14:28] LABS: BASO % 0.8 % (0.0-1.0); EOS # 0.1 10^3/uL (0.0-0.5); EOS % 1.9 % (0.0-3.0); HEMATOCRIT 44.6 % (42.0-52.0); HEMOGLOBIN 14.2 g/dl (13.5-17.5); LYMPH # 2.1 10^3/uL (1.5-5.0); LYMPH % 40.2 % (24.0-44.0); MEAN CORPUSCULAR HEMOGLOBIN 29.4 pg (27.0-33.0); MEAN CORPUSCULAR HGB CONC 31.8 g/dl (32.0-36.5); MEAN CORPUSCULAR VOLUME 92.3 fl (80.0-96.0); MONO # 0.6 10^3/uL (0.0-0.8); MONO % 12.3 % (2.0-8.0); NEUTROPHILS # 2.3 10^3/uL (1.5-8.5); NEUTROPHILS % 44.6 % (36.0-66.0); PLATELET COUNT, AUTOMATED 304 10^3/uL (150-450); RED BLOOD COUNT 4.83 10^6/uL (4.30-6.10); WHITE BLOOD COUNT 5.2 10^3/uL (4.0-10.0)
[2024-08-21 14:32] LABS: ERYTHROCYTE SEDIMENTATION RATE 6 mm/hr (0-15)
[2024-08-22 16:17] LABS: ALDOLASE 2.7 U/L (< OR = 8.1)
[2024-08-24 23:57] LABS: COMPLEMENT TOTAL (CH50) 52 U/mL (31-60)
[2024-08-27 17:32] LABS: HLA-B27 Negative (Negative)
== END ==
LOC: M SFHCRHEU 09:41
PROVIDERS: ATTEND Internal Medicine Rheumatology
DX: R53.83 Other fatigue (principal); R52 Pain, unspecified; R76.8 Other specified abnormal immunological findings in serum; R20.2 Paresthesia of skin

== ENCOUNTER → 2024-08-21 | Outpatient (CLI) | payer OTHER | LOC: M PLAIMG 11:43 | PROVIDERS: ATTEND Internal Medicine Rheumatology | DX: R53.83 Other fatigue (principal); R52 Pain, unspecified; R76.8 Other specified abnormal immunological findings in serum; R20.2 Paresthesia of skin; Z87.81 Personal history of (healed) traumatic fracture ==